=== PATIENT | female | born 1970 | race Caucasian/White ===

== ENCOUNTER → 2024-09-18 | Day surgery (SDC) | payer MEDICAID ==
[~2024-09-18] MED LIST: LIDOCAINE HCL 1% 10 MG/ML 10ML VIAL ONE; SODIUM BICARBONATE 4.2% 2.5MEQ/5ML VIAL IV ONE
== END | disposition home or self-care (01) ==
LOC: RAD 09:51
PROVIDERS: ATTEND Surgery Surgical Oncology
DX: D24.1 Benign neoplasm of right breast (principal); Z79.899 Other long term (current) drug therapy; Z98.890 Other specified postprocedural states
CPT/HCPCS: 19285; J2003; J3490; A4648

== ENCOUNTER → 2024-09-23 | Day surgery (SDC) | payer MEDICAID ==
[~2024-09-23] VITALS: Ht 157.5 cm; Wt 81.6 kg
[~2024-09-23] MED LIST changes: +ASPI-1497 PO; +BUPIVACAINE HCL/PF 0.5% (5MG/ML) 10ML ONE; +DIPHENHYDRAMINE 50MG/ML VIAL IV SCH; +FENTANYL CITRATE/PF 50MCG/ML 2ML VIAL ONE; +GLYCOPYRROLATE 0.2MG/ML VIAL 5ML IV PRN; +HYDR12.54 PO; +HYDRALAZINE 20MG/ML VIAL IV PRN; +HYDROMORPHONE HCL/PF 1MG/ML INJ IV PRN; +HYDROMORPHONE HCL/PF 1MG/ML INJ ONE; +LABETALOL 5MG/ML 4ML INJ IV PRN; -LIDOCAINE HCL 1% 10 MG/ML 10ML VIAL ONE; +LIDOCAINE HCL/EPINEPHRINE 1%-EPI 1:100,000 20ML VIAL ONE; +LOSA50TA41 PO; +RACEPINEPHRINE 2.25% 0.5ML NEB VIAL ONE; +ROCURONIUM BROMIDE 10MG/ML VIAL 5ML IV ONE; -SODIUM BICARBONATE 4.2% 2.5MEQ/5ML VIAL IV ONE; +SUCCINYLCHOLINE CHLORIDE 200MG/10ML IV ONE; +SUGAMMADEX SODIUM 200MG/2ML VIAL IV ONE
[2024-09-23] MEDS: LACTATED RINGERS 1,000 ML IV SCH (08:31)
[2024-09-23 11:59] VITALS: PULSE 74; RESP 16; O2SAT 100
[2024-09-23] MEDS: RACEPINEPHRINE 2.25% 0.5ML NEB VIAL HHN SCH (11:59)
[2024-09-23] MEDS: DEXAMETHASONE 4MG/ML 1ML VIAL IV SCH (13:35)
[2024-09-23] MEDS: ACETAMINOPHEN 1000MG/100ML 100 ML IV NR (13:35)
[2024-09-23] MEDS: THROAT LOZENGES-BENZOCAINE/MENTH/CETYLPYRD CL LOZENGES MM PRN (15:11)
[2024-09-23] MEDS: ONDANSETRON HCL 4MG/2ML INJ IM SCH (15:45)
[2024-09-23] MEDS: FAMOTIDINE 20MG/2ML VIAL IV SCH (15:45)
[2024-09-23] MEDS: METOCLOPRAMIDE HCL 10MG/2ML VIAL IV SCH (15:45)
[2024-09-23] MEDS: ONDANSETRON HCL 4MG/2ML INJ IV PRN (17:26)
== END | disposition home or self-care (01) ==
LOC: OR 07:48
PROVIDERS: ATTEND Surgery Surgical Oncology
DX: D24.1 Benign neoplasm of right breast (principal); I10 Essential (primary) hypertension; E66.9 Obesity, unspecified; Z79.899 Other long term (current) drug therapy; Z98.890 Other specified postprocedural states; Z79.82 Long term (current) use of aspirin; Z68.32 Body mass index [BMI] 32.0-32.9, adult
CPT/HCPCS: 19125; 76098; 94070; 71045; 98960; 94640; 94664; J3010; J0665; J1100; J1308; J2004; J2765; J2405; J3490; J0330; J1171; J0131